=== PATIENT | female | born 1940 | race Caucasian/White ===

== ENCOUNTER 2023-03-14 09:08 | Outpatient (CLI) | payer MEDICARE | END 2023-03-14 09:09 | disposition home or self-care (01) | LOC: CSHULT 09:08 | PROVIDERS: ATTEND Internal Medicine Gastroenterology | DX: K85.90 Acute pancreatitis without necrosis or infection, unspecified (principal); K21.9 Gastro-esophageal reflux disease without esophagitis; Z12.11 Encounter for screening for malignant neoplasm of colon; K82.8 Other specified diseases of gallbladder | CPT/HCPCS: 76705 ==